=== PATIENT | female | born 1940 | race Caucasian/White ===

== ENCOUNTER 2016-08-14 19:28 | Emergency (ER) | payer MEDICARE, BC ==
[2016-08-14 19:52] VITALS: TEMP 99.2
[2016-08-14 20:25] LABS: BASOPHILS % (AUTO) 2 % (0-3); EOSINOPHILS % (AUTO) 2 % (0-9); HEMATOCRIT 32 % (35-47); MEAN CORPUSCULAR HGB CONC 34.2 gm/dl (32.0-36.0); MEAN CORPUSCULAR VOLUME 86 fL (81-99); MONOCYTES % (AUTO) 8.7 % (0-12); NEUTROPHILS % (AUTO) 56.9 % (37-80)
[2016-08-14] MEDS ORDERED: LACTATED RINGERS 1,000 ML IV SCH (20:30)
[2016-08-14] MEDS ORDERED: SODIUM CHLORIDE 0.9% FLUSH 10 ML SOL IV PRN (20:39)
[2016-08-14 20:40] LABS: ALBUMIN 3.4 gm/dl (3.4-5.0); CALCIUM 8.4 mg/dl (8.5-10.1); POTASSIUM 3.8 mMol/L (3.5-5.1)
[2016-08-14 21:04] VITALS: RESP 14
[2016-08-14 21:05] VITALS: BP 140/68; PULSE 84; O2SAT 95
== END 2016-08-14 21:15 | disposition short-term general hospital (02) | DRG 379 ==
LOC: ED 19:28
DX: K92.2 Gastrointestinal hemorrhage, unspecified (principal)
CPT/HCPCS: 36415; 80053; 85025; 85610; 85730; 96365; 99285; 99291

== ENCOUNTER 2016-10-10 07:57 | Day surgery (SDC) | payer MEDICARE, BC ==
[~2016-10-10 07:57] MED LIST: LIDOCAINE HCL 1% MPF SOL ONE; PROPOFOL 500 MG/50 ML EMU IV ONE
[2016-10-10 09:51] VITALS: TEMP 97.1
[2016-10-10 10:17] VITALS: O2SAT 97
[2016-10-10 10:27] VITALS: BP 162/87; PULSE 79; RESP 18
== END 2016-10-10 10:35 | disposition home or self-care (01) | DRG 812 ==
LOC: SURG 07:57
PROVIDERS: ATTEND Internal Medicine Gastroenterology
DX: D62 Acute posthemorrhagic anemia (principal); K25.9 Gastric ulcer, unspecified as acute or chronic, without hemorrhage or perforation; K44.9 Diaphragmatic hernia without obstruction or gangrene; Q40.3 Congenital malformation of stomach, unspecified; K31.9 Disease of stomach and duodenum, unspecified
CPT/HCPCS: J2001; J2704

== ENCOUNTER 2016-12-12 07:01 | Day surgery (SDC) | payer MEDICARE, BC ==
[2016-12-12] MEDS ORDERED: PROPOFOL 500 MG/50 ML EMU IV ONE (07:58)
[2016-12-12] MEDS ORDERED: LIDOCAINE HCL 1% MPF SOL ONE (07:58)
[2016-12-12 09:12] VITALS: TEMP 97.5
[2016-12-12 09:38] VITALS: BP 144/79; PULSE 72; RESP 20; O2SAT 99
== END 2016-12-12 10:00 | disposition home or self-care (01) | DRG 392 ==
LOC: SURG 07:01
PROVIDERS: ATTEND Internal Medicine Gastroenterology
DX: K31.9 Disease of stomach and duodenum, unspecified (principal); K44.9 Diaphragmatic hernia without obstruction or gangrene; K31.89 Other diseases of stomach and duodenum
CPT/HCPCS: J2001; J2704